=== PATIENT | female | born 1970 | race Caucasian/White ===

== ENCOUNTER 2018-09-15 10:39 | Emergency (ER) | payer BC, MEDICARE ==
[2018-09-15 10:47] VITALS: BP 124/79
[2018-09-15 11:42] LABS: INTERNATIONAL RATION (INR) 1.75; PROTHROMBIN TIME 21.3 SEC (11.4-15.4)
--- NOTE | 2018-09-15 12:07 | ER Document Report ---
ED General - General Chief Complaint: Leg Pain Stated Complaint: RIGHT LEG PAIN Time Seen by Provider: 09/15/18 11:00 Notes: Patient is a 48-year-old female that presents to the emergency department for chief complaint of redness and swelling in her right leg. Patient states that on Thursday 1 of her dogs did hit her in her right calf and knee, and yesterday she noticed some redness and swelling in that area, and was worried she had developed phlebitis which she has a history of. She also has a history of DVT, and is currently on Coumadin for that, she does have history of factor V Leiden. She denies having any fevers, chills, night sweats, shortness of breath, chest pain or difficulty breathing. Denies any significant swelling in her legs. She does have a history of varicose veins. Past Medical History: DVT, factor V Leiden, varicose veins Past Surgical History: Gastric bypass surgery, IVC filter Social History: Admits to smoking cigarettes, denies alcohol or drug use. Family History: Reviewed and noncontributory for presenting illness Allergies: Reviewed, see documented allergy list. REVIEW OF SYSTEMS: Other than noted above, the 12 point review of systems was reviewed with the patient and were negative, all pertinent findings are included in the HPI. PHYSICAL EXAMINATION: Vital signs reviewed, nursing noted reviewed. GENERAL: Well-appearing, well-nourished and in no acute distress. HEAD: Atraumatic, normocephalic. EYES: Eyes appear normal, extraocular movements intact, sclera anicteric, conjunctiva are normal. ENT: nares patent, oropharynx clear without exudates. Moist mucous membranes. NECK: Normal range of motion, supple without lymphadenopathy LUNGS: Breath sounds clear to auscultation bilaterally and equal. No wheezes rales or rhonchi. HEART: Regular rate and rhythm without murmurs ABDOMEN: Soft, nontender, normoactive bowel sounds. No rebound, guarding, or rigidity. No masses appreciated. EXTREMITIES: The right lower extremity, in the medial aspect, just distal to the knee, extending to the mid calf, as area of erythema, and tortuous varicose vein, consistent with thrombophlebitis, no lymphangitis, or circumferential erythema. No peripheral edema in either extremity. The rest the patient's extremity exam is grossly unremarkable. NEUROLOGICAL: No focal neurological deficits. Moves all extremities spontaneously Motor and sensory grossly intact on exam. PSYCH: Normal mood, normal affect. SKIN: Warm, Dry, normal turgor, no rashes or lesions noted on exposed skin - Related Data Allergies/Adverse Reactions: Penicillins Allergy (Verified 09/15/18 10:43) Past Medical History - Social History Smoking Status: Current Every Day Smoker Chew tobacco use (# tins/day): No Frequency of alcohol use: None Drug Abuse: None Family History: Reviewed & Not Pertinent Patient has suicidal ideation: No Patient has homicidal ideation: No Renal/ Medical History: Denies: Hx Peritoneal Dialysis Musculoskeletal Medical History: Reports Hx Arthritis Past Surgical History: Reports: Hx Abdominal Surgery - gastric bipass, Hx Section, Hx Cholecystectomy, Hx Gynecologic Surgery - uterine ablation, Hx Tonsillectomy - &adenoids Physical Exam - Vital signs Vitals: Temp Pulse Resp BP Pulse Ox 98.3 F 93 16 124/79 99 09/15/18 10:45 09/15/18 10:45 09/15/18 10:45 09/15/18 10:45 09/15/18 10:45 Course - Re-evaluation Re-evalutation: Patient seen and examined vital signs reviewed. Laboratory data and imaging were ordered as appropriate for the patient's presenting symptoms and complaint, with consideration of any critical or life threatening conditions that may be associated with their obtained history and exam as noted above. Results were reviewed when available and demonstrated INR 1.75, duplex ultrasound was negative for DVT, but positive for superficial venous thrombosis, which was expected, based on patient's physical exam, will place the patient on doxycycline, for 7 days, and advised her to take an additional dose of her Coumadin today at 5 mg, and to then resume her normal Coumadin dosing following that. She is advised to follow-up when she gets back to [place] to have a repeat INR check. She is also advised if she has worsening symptoms such as increased leg swelling, fevers, or difficulty breathing to return to the emergency department which she is agreeable to. Results were discussed with the patient at this point, after careful consideration I feel that that patient can be discharged from the emergency department, the patient was educated treatments and reasons to return to the emergency department based on their presumed diagnosis as noted above, they were advised to followup with a primary care physician in 2-3 days. Patient was agreeable to plan of care. *Note is created using voice recognition software and may contain spelling, syntax or grammatical errors. Laboratory 09/15/18 11:30 PT 21.3 H INR 1.75 - Vital Signs Vital signs: Temp Pulse Resp BP Pulse Ox 98.3 F 93 16 124/79 99 09/15/18 10:45 09/15/18 10:45 09/15/18 10:45 09/15/18 10:45 09/15/18 10:45 - Laboratory Laboratory results interpreted by me: 09/15/18 11:30 PT 21.3 H Discharge - Discharge Clinical Impression: Superficial thrombophlebitis Qualifiers: Superficial thrombophlebitis-Involved body area: lower extremity Laterality: right Qualified Code(s): I80.01 - Phlebitis and thrombophlebitis of superficial vessels of right lower extremity Condition: Stable Disposition: HOME, SELF-CARE Instructions: Superficial Phlebitis ([facility]) Additional Instructions: Please monitor for any worsening symptoms, you should apply warm compress for 20 minutes on a 20 minutes off throughout the day, at least 3 times daily, to help with your phlebitis, take the antibiotic as prescribed, and follow-up with your primary care physician. Prescriptions: RX: Doxycycline Hyclate 100 mg PO BID #14 capsule Referrals: KYREE RUTH MD [ACTIVE STAFF] - Follow up in 3-5 days (or your primary care. )
--- NOTE | 2018-09-16 11:46 | XCELERA REPORT ---
[address] [id number] Lower Extremity Venous Evaluation Procedure: Color flow and duplex imaging of the veins of the right lower extremity as well as the left Common Femoral vein. Right Sided Venous Evaluation Echogenic, enlarged varicosity with no compression near the knee. No Colour flow. Otherwise normal vessel filling wall to wall, compression and augmentation as well as Colour flow down to the infrageniculate veins. Left Sided Venous Evaluation The left common femoral vein is fully compressible. Spontaneous and phasic flow is present in the left common femoral vein. Interpretation Summary No duplex evidence of DVT or obstruction in the right lower extremity nor in the left Common Femoral vein. Superficial phlebitis in the right leg varicosity noted, acute. Probably clinically evident. Name: MAMIE LLANES Age: 48 yrs Gender: Female : 1970 Patient Status: Emergency Patient Location: ER Study Date: 09/15/2018 11:40 AM Reason For Study: pain right leg / Hx clots Ordering Physician: DONNA RODRIGUEZ Performed By: Razia Lentz : DONNA RODRIGUEZ > Humza Karu
== END 2018-09-15 12:16 | disposition home or self-care (01) ==
LOC: ER 10:39
DX: I80.01 Phlebitis and thrombophlebitis of superficial vessels of right lower extremity (principal); I83.91 Asymptomatic varicose veins of right lower extremity; D68.51 Activated protein C resistance; Z79.01 Long term (current) use of anticoagulants; Z88.0 Allergy status to penicillin; F17.200 Nicotine dependence, unspecified, uncomplicated; Z98.84 Bariatric surgery status
CPT/HCPCS: 36415; 85610; 93971; 99284